=== PATIENT | female | born 2000 | race Caucasian/White ===

== ENCOUNTER 2024-09-03 03:07 | Emergency (ER) | payer BC, SELFPAY ==
[2024-09-03 03:09] VITALS: BP 118/80
[2024-09-03 03:37] VITALS: BMI 22.0
[2024-09-03 04:03] LABS: % Basophils 0.6 % (0-2); % Immature Granulocytes 0.2 % (0-0.5); % Lymphocytes 42.4 % (20.5-51.1); % Neutrophils 43.8 % (42.2-75.2); Absolute Eosinophils 0.3 10^3/uL (0-0.7); Absolute Lymphocytes 2.8 10^3/uL (1.2-3.4); Absolute Monocytes 0.5 10^3/uL (0.1-0.6); Absolute Neutrophils 2.9 10^3/uL (1.4-6.5); Hematocrit 40.9 % (37.0-47.0); Hemoglobin 13.6 g/dL (12.0-16.0); Mean Corp Hgb Conc. 33.3 g/dL (33.0-37.0); Mean Corpuscular Hgb 27.9 pg (27.0-31.0); Mean Corpuscular Volume 83.8 fL (81.0-99.0); Mean Platelet Volume 11.5 fL (7.4-10.4); Nucleated Red Blood Cells % 0 %; Platelet Count 147 10^3/uL (130-400); Red Blood Cell Count 4.88 10^6/uL (4.20-5.40); Red Cell Dist. Width 12.4 % (11.5-14.5); White Blood Cell Count 6.7 10^3/uL (4.8-10.8)
[2024-09-03 04:07] LABS: Urine Albumin 1+ (Neg - Trace); Urine Bilirubin Negative (Negative); Urine Color Brown; Urine Glucose Negative (Negative); Urine Ketone Negative (Negative); Urine Leukocyte 1+ (Negative); Urine Nitrite Negative (Negative); Urine Occult Blood 4+ (Negative); Urine Urobilinogen Negative (Neg - 1+)
[2024-09-03 04:09] LABS: Urine Character Cloudy (Clear)
--- NOTE | 2024-09-03 04:22 | ED.GENMED ---
Addendum entered and electronically signed by Fidencio Singer PA-C 09/05/24 08:14:
UCx likely skin contamination
Original Note:
History of Present Illness
<BRISSA Renee - Last Filed: 09/03/24 04:35>
General
Chief Complaint: Flank Pain
Source: patient
Time Seen by Provider: 09/03/24 04:14
Nursing documentation reviewed up to this point in time: agreed with
History of Present Illness
History of Present Illness:
Pt is a 24 yo F with a history of nephrolithiasis who presents to the ED tonight with left side flank pain. Pt states that she has been having hematuria so she received a CT on Monday which showed kidney stones in both the left and right kidneys.
Pt states that the pain began tonight only in the left flank. Pt states that the pain is intermittent in severity. She rates the pain a 5/10 and describes it as sharp. She explains that the pain radiates around her left hip. Pt denies seeing a stone
pass since having the CT on Monday. Pt also admits to having intermittent chills that come on with the worsening pain. Pt states that she still has hematuria. Pt denies N/V/D, fever, abdominal pain, dysuria, burning with urination.
Past History
<BRISSA Renee - Last Filed: 09/03/24 04:35>
Past History
ED Past Medical History: None and Other (Kidney stone)
ED Past Surgical History: Other ([place] tooth removal)
Social History
Tobacco: Non-smoker
Alcohol: None
Drug: None
Personal: Single
Living: with family
Employment: Student
Review of Systems
<BRISSA Renee - Last Filed: 09/03/24 04:35>
Review of Systems
Allergies reviewed?: Yes
Constitutional: Reports chills
Respiratory: Reports no symptoms
Cardiac: Reports no symptoms
ABD/GI: Reports no symptoms
: Reports flank pain (left side) and dark urine
Neurological: Reports no symptoms
Phy Exam
<Penny Mahan, [facility] - Last Filed: 09/03/24 04:35>
General Physical Exam
General Presentation: well appearing and no apparent distress
General age: appears stated age
General Skin: warm
General Habitus: normal
General Mental: alert
General Hydration: appears well hydrated
Cardiovascular Exam
Cardiovascular Exam: regular rate/rhythm
Pulmonary Exam
Pulmonary Exam: lungs clear
Gastrointestinal Exam
Gastrointestinal Exam: non tender, soft, non distended and cva tenderness
Course
<Penny Mahan, [facility] - Last Filed: 09/03/24 04:35>
Orders/Labs/Results
Orders:
Orders
09/03/24 03:30
IV Insert/Care/Rem.- Treatment PRN
Test Result ONCE
09/03/24 03:32
Complete Blood Count/With Diff Urgent
Comprehensive Metabolic Panel Urgent
HCG, Serum Qualitative Screen Urgent
Comment: Notify provider if positive test present
Lipase Urgent
Urinalysis Reflex To Culture Urgent
Date Specimen was Collected: 09/03/24
Time Specimen was Collected: 03:30
Urine Microscopic Reflex Cult Urgent
Urine Culture Urgent
ADRIANA Source: U
Specimen Description:
Date Specimen was Collected: 09/03/24
Time Specimen was Collected: 03:30
09/03/24 04:31
Renal & Bladder US [US Renal With Bladder] Urgent
Comment:
Reason For Exam: acute left flank pain, hx of kidney stones
Abnormal Lab Results
09/03/24
03:32
MPV 11.5 H fL
(7.4-10.4)
BUN 22 H mg/dl
(7-17)
Ur Occult Blood Reflex 4+ A
(Negative)
Leukocyte Esterase Rfl 1+ A
(Negative)
Urine RBC >100 A /HPF
(0-2)
Urine Bacteria (Reflex) Many A
(Negative)
Urine Albumin (Reflex) 1+ A
(Neg - Trace)
09/03/24 03:32
09/03/24 03:32
Vital Signs
Initial and Last Documented VS:
Initial Vital Signs
Temp Pulse Resp BP Pulse Ox
97.7 F 64 18 118/80 97
09/03/24 03:09 09/03/24 03:09 09/03/24 03:09 09/03/24 03:09 09/03/24 03:09
Last Documented Vital Signs
Temp Pulse Resp BP Pulse Ox
97.7 F 64 18 118/80 97
09/03/24 03:09 09/03/24 03:09 09/03/24 03:09 09/03/24 03:09 09/03/24 03:09
Kervinlt;Gianna Amanda, - Last Filed: 09/03/24 07:02>
Orders/Labs/Results
Orders:
Orders
09/03/24 03:30
IV Insert/Care/Rem.- Treatment PRN
Test Result ONCE
09/03/24 03:32
Complete Blood Count/With Diff Urgent
Comprehensive Metabolic Panel Urgent
HCG, Serum Qualitative Screen Urgent
Comment: Notify provider if positive test present
Lipase Urgent
Urinalysis Reflex To Culture Urgent
Date Specimen was Collected: 09/03/24
Time Specimen was Collected: 03:30
Urine Microscopic Reflex Cult Urgent
Urine Culture Urgent
ADRIANA Source: U
Specimen Description:
Date Specimen was Collected: 09/03/24
Time Specimen was Collected: 03:30
09/03/24 04:31
Renal & Bladder US [US Renal With Bladder] Urgent
Comment:
Reason For Exam: acute left flank pain, hx of kidney stones
Abnormal Lab Results
09/03/24
03:32
MPV 11.5 H fL
(7.4-10.4)
BUN 22 H mg/dl
(7-17)
Ur Occult Blood Reflex 4+ A
(Negative)
Leukocyte Esterase Rfl 1+ A
(Negative)
Urine RBC >100 A /HPF
(0-2)
Urine Bacteria (Reflex) Many A
(Negative)
Urine Albumin (Reflex) 1+ A
(Neg - Trace)
09/03/24 03:32
09/03/24 03:32
Vital Signs
Initial and Last Documented VS:
Initial Vital Signs
Temp Pulse Resp BP Pulse Ox
97.7 F 64 18 118/80 97
09/03/24 03:09 09/03/24 03:09 09/03/24 03:09 09/03/24 03:09 09/03/24 03:09
Last Documented Vital Signs
Temp Pulse Resp BP Pulse Ox
97.7 F 64 18 118/80 97
09/03/24 03:09 09/03/24 03:09 09/03/24 03:09 09/03/24 03:09 09/03/24 03:09
<BRISSA Renee - Last Filed: 09/03/24 04:35>
MDM/Problems Addressed
Differential Diagnosis Includes:
Nephrolithiasis
<BRISSA Renee - Last Filed: 09/03/24 04:35>
*Critical Care Note
Total Time (30-74mins, 75-104mins- exclusive of procedures): Not Applicable
<Gianna Amanda DO - Last Filed: 09/03/24 07:02>
*Radiology
Radiology exam reviewed: radiology read reviewed
*Pulse Oximetry
Patient hypoxic: no
ED Attending Note
<BRISSA Renee - Last Filed: 09/03/24 04:35>
-
Portions of this chart may have been created with voice recognition software.� Occasional wrong word or��sound alike� substitutions may have occurred due to the inherent limitations of voice recognition software.
<Gianna Amanda DO - Last Filed: 09/03/24 07:02>
ED Attending Note
Patient seen and examined by attending physician: Yes
I performed the substantive portion of visit, reviewed & personally made and approve the management plan that is documented in note by myself or ALBERTO.: Yes
ED Attending Note:
This is a 24-year-old female with history of kidney stones who has had intermittent hematuria over the past week or 2. She underwent outpatient CAT scan abdomen pelvis this past weekend that showed bilateral punctate nonobstructive intrarenal
calculi, otherwise unremarkable. She has a follow-up appointment scheduled with urology for this September 05. Other than gross hematuria she has been feeling well, no fever, no abdominal pain, no UTI symptoms. Tonight however she awoke
with abrupt onset of left flank pain, moderate in nature. She took 2 ibuprofen around 3 AM. Pain has since resolved.
She denies risk of . Currently breast-feeding.
GENERAL: This is a 24-year-old woman appears her stated age, bright and alert, pleasant, easily communicative and in no acute distress. is accompanying.
EYE: anicteric
NECK: Supple, nontender, no meningismus, no significant adenopathy.
ENT: oral mucosa is moist. No rhinorrhea.
CARDIAC: Regular rate and rhythm. no murmur.
LUNGS: Clear breath sounds bilaterally, no acute respiratory distress, no wheezes/rales/rhonchi
ABDOMEN: Soft, nondistended, without focal tenderness, no r/g, no cvat. normoactive BS.
NEUROLOGICAL: Alert and oriented x3, no focal neuro deficits. Gait is ortega and steady.
SKIN: Warm and dry, normal color, skin intact. No rash.
MUSCULOSKELETAL: No C/C/E. peripheral pulses are full and equal b/l. No palpable tenderness.
PSYCH: Normal and appropriate interaction.
Concern for renal colic on the left, ureteric stone versus recently passed stone. Concern for UTI.
Overall appears comfortable, pain-free. Nothing to suggest infectious process.
Will check labs, urinalysis and will plan for renal ultrasound with bladder.
06:50
Patient remains comfortable and pain-free.
Labs are unremarkable.
Urinalysis shows significant hematuria, many bacteria but this is a contaminated specimen with greater than 30 squamous epithelial cells. She has not had UTI symptoms, remains afebrile and white blood cell count is normal. At this point no
indication for antibiotic but will await urine culture result. There is note of amorphous crystals in her urine and she may have recently passed a stone versus gravel.
Renal ultrasound is unremarkable. No hydronephrosis. Ureteral jet noted on the left.
Discussed importance of remaining well-hydrated on a daily basis.
Follow-up with urologist in 2 days time as already scheduled.
Patient may continue ibuprofen as needed if pain recurs. I have also prescribed Zofran for as needed nausea.
Discharge Plan
Departure
Patient Disposition: Home (Routine Discharge)
Date of Disposition: 09/03/24
Time of Disposition: 06:53
Patient with high blood pressure during this ER visit?: No
Condition: Good
Discharge Problem:
Acute left flank pain, Gross hematuria
Instructions: Flank Pain (DC)
Prescriptions:
New
ondansetron 4 mg tablet,disintegrating
4 mg PO QID PRN (Reason: nausea and vomiting) Qty: 20 0RF
No Action
[id number]
1 tab PO DAILY
escitalopram oxalate
10 mg PO DAILY
ondansetron 4 mg tablet,disintegrating
4 mg PO Q8H 4 Days Qty: 12 0RF
Referrals:
Keeley Abrams PA-C [Family Provider] -
Activity Restrictions/Additional Instructions:
Stay well-hydrated on a daily basis.
Follow-up with urologist on as already scheduled.
If flank pain returns, you can take ibuprofen 400 mg every 6 hours as needed. A prescription for ondansetron has been prescribed for as needed nausea.
Interventions
Interventions:
*Risk Screen - Suicide Last Done: 09/03/24 03:09
*General Assessment Last Done: 09/03/24 03:32
*Neglect/Abuse Screening Last Done: 09/03/24 03:09
ED- Fall Risk Assessment Last Done: 09/03/24 03:38
*ED COVID-19 Vaccine History Last Done: 09/03/24 03:32
IF-Gcmqja-Dselyptkaq Assessment Last Done: 09/03/24 03:38
ED-Female Genitourinary Assessment Last Done: 09/03/24 03:38
Discharge Date and Time
Print Language: IRANIAN
[2024-09-03 04:29] LABS: HCG, Serum Qualitative Screen Negative
[2024-09-03 04:36] LABS: ALT (SGPT) 21 U/L (0-35); AST (SGOT) 31 U/L (14-36); Albumin 4.5 g/dl (3.5-5.0); Alkaline Phosphatase 109 U/L (38-126); Blood Urea Nitrogen 22 mg/dl (7-17); Calcium 9.8 mg/dl (8.4-10.2); Carbon Dioxide 23 mmol/L (22-30); Chloride 106 mmol/L (98-107); Estimated Creatinine Clearance 77 ml/min; Glucose 94 mg/dl (70-99); Lipase 80 U/L (23-300); Potassium 3.7 mmol/L (3.5-5.1); Sodium 142 mmol/L (135-145); Total Bilirubin 0.3 mg/dl (0.2-1.3); Total Protein 6.6 g/dl (6.3-8.2); eGFR > 60.00
[2024-09-03 05:19] LABS: Urine Amorphous Seen; Urine Mucus Many; Urine Squamous Cell >30 /LPF (Few)
[2024-09-03 05:20] LABS: Urine Red Blood Cell >100 /HPF (0-2)
[2024-09-03 05:22] LABS: Urine Bacteria Many (Negative)
[2024-09-03 05:24] LABS: Urine Yeast SEEN (Negative)
== END 2024-09-03 07:11 | disposition home or self-care (01) ==
LOC: EMR 03:07
PROVIDERS: EMERGENCY PHYSICIAN Emergency Medicine; FAMILY PHYSICIAN Student in an Organized Health Care Education/Training Program
DX: R10.9 Unspecified abdominal pain (principal); R31.0 Gross hematuria; Z87.442 Personal history of urinary calculi
CPT/HCPCS: 99284; 76770; 80053; 81003; 81015; 83690; 84703; 85025; 87077; 87086

== ENCOUNTER → 2024-09-17 14:50 | Outpatient (REF) | payer BC, SELFPAY | LOC: RAD 14:50 | PROVIDERS: ATTENDING PHYSICIAN Urology; FAMILY PHYSICIAN Student in an Organized Health Care Education/Training Program | DX: R31.0 Gross hematuria (principal) | CPT/HCPCS: 74178; Q9967 ==